=== PATIENT | male | born 1955 | race Caucasian/White ===

== ENCOUNTER 2016-07-13 06:48 | Day surgery (SDC) | payer BC ==
[2016-07-12 17:11] LABS: HEMOGLOBIN 16.5 g/dL (13.6-17.8)
--- NOTE | ~2016-07-13 | OP ---
Record Of Operation [facility] [address] [place]. [address] NAME: SHIRA PHAM : 57 STATUS : REG [facility] PAT#: [id number] AGE: 61 ADM/REG DATE : 07/13/16 MR#: [id number] REPORT SERV DATE: 07/13/16 DICTATED BY: ZEV NORMAN III DATE: 07/13/16 REPORT STATUS : Draft TRANSCRIBED BY: MODL DATE: 07/13/16 DATE OF PROCEDURE: 07/13/2016 PREOPERATIVE DIAGNOSES: 1. Torn anterior cruciate ligament, right knee. 2. Torn posterior horn medial meniscus, right knee. POSTOPERATIVE DIAGNOSES: 1. Torn anterior cruciate ligament, right knee. 2. Torn posterior horn medial meniscus, right knee. SURGICAL PROCEDURE PERFORMED: 1. Arthroscopic-assisted anterior cruciate ligament reconstruction of the right knee using tibialis allograft with the EndoButton femoral fixation and Arthrex bioabsorbable tibial fixation. 2. Arthroscopic repair of a horizontal tear, posterior horn medial meniscus with FasT-Fix suture anchor x1. SURGEON: Zev Norman M.D. FIXED INCOME [employer]ADING VICE PRESIDENT: Ivis Crowell. ANESTHESIA: General. ANTIBIOTICS: Ancef 2 g. COMPLICATIONS: None. CRYSTALLOID: 1000 mL. ESTIMATED BLOOD LOSS: 30 mL. TOURNIQUET TIME: 51 minutes. Femoral nerve block for postoperative pain control. PROCEDURE IN DETAIL: The patient was brought to the operating room, placed on the table in supine position, and general anesthesia was induced. Ancef 2 g was administered intravenously in the operating room. A pneumonic tourniquet was applied to right upper thigh along with the arthroscopic leg almaguer. Right lower extremity was prepped and draped in the usual sterile fashion. It was exsanguinated with a 6-inch Esmarch, and the tourniquet was inflated to 350 mmHg. Assuring good anesthesia, a standard anterolateral portal was provided. The arthroscope was inserted. The knee was inflated with sterile normal saline by means of arthroscopic pump. Suprapatellar pouch was first visualized. It was free of any loose bodies. Medial and lateral gutters were normal. The patellofemoral joint had one cartilage defect in the lateral patellar facet that was stable and it was a Record Of Operation [facility] [address] [place]. [address] NAME: SHIRA PHAM : 57 STATUS : REG [facility] [place] PAT#: [id number] AGE: 61 ADM/REG DATE : 07/13/16 MR#: [id number] REPORT SERV DATE: 07/13/16 DICTATED BY: ZEV NORMAN III DATE: 07/13/16 REPORT STATUS : Draft TRANSCRIBED BY: MODL DATE: 07/13/16 longitudinal fissure with no flaps and appeared stable. The intercondylar notch revealed a complete tear of the anterior cruciate ligament of the femoral attachment which was flipped down on itself. Anteromedial portal was created. The torn anterior cruciate ligament was debrided with a 4.5 shaver. Debridement in the infrapatellar fat pad was performed as well for better visualization. Lateral compartment revealed normal lateral meniscus, lateral femoral condyle, and lateral tibial plateau. The medial compartment had a linear horizontal tear of the posterior horn of medial meniscus, which was through and through. The undersurface could be pulled into the joint. The superior surface was complete but barely complete on the superior portion of the meniscus. Arthroscopic pictures were obtained. The medial femoral condyle had grade 2 changes. At this point, a curved FasT-Fix was used to place a suture in the meniscus, tightened it up, and a nice secure repair arthroscopic pictures were obtained. At this point, the electrocautery was used to cauterize the inner wall of the lateral femoral condyle. A high-speed bur was used to perform a minimal notchplasty. An Acufex guide was set on 50 degrees and a K-wire was placed up into the intercondylar notch to an anteromedial incision. This was over-reamed with a 10 mm [place] reamer. A bone debris was removed. The arthroscope was then switched to the anteromedial portal, and an external aiming guide was placed to the anterior lateral portal. A lateral femoral incision was made on the lateral side of the distal femur to correspond with the guide. The iliotibial band was incised. A 10 mm flip cutter was drilled down into the joint, deployed, and a retrograde tunnel was created approximately 25 mm in length. The flip cutter was removed. A passing suture was placed down the tunnel and out the anteromedial tunnel. A tibialis allograft was previously prepared in the beginning of the case with an EndoButton femoral fixation device. The graft was marked in 30 mm increments and measured 10 mm in diameter. The leading sutures were pulled up through the tunnels. This allowed the graft to be pulled up into the tunnels, first the tibial side, and then the femoral side. The EndoButton was deployed on the lateral side of the femur and confirmed with the mini C-arm image. The knee was cycled approximately 20 times. It appeared isometric with no shortening in flexion or extension. At this point, the tibial side was anchored down with a 28 mm x 11 mm Arthrex bioabsorbable interference screw. Excess graft was removed. Again, the graft was inspected arthroscopically, noted to be in good position with no notch impingement. Instrumentation was removed. Tourniquet was released after 51 minute. The incisions were closed with 0 Vicryl, 2-0 Vicryl, and running 4-0 Monocryl. Benzoin and Steri-Strips were applied. 30 mL of 0.5% Marcaine solution was injected into the knee for postoperative pain control. Sterile dressings were applied, followed by a DonJoy hinged knee brace 0-90 degrees. The patient tolerated the procedure well, brought to recovery in satisfactory condition. There were no intraoperative, postoperative, or anesthetic complications. All instrument, needle, sponge, and lap counts were correct. TB/FERNANDO Zev Norman III, M.D. / [id number] Record Of Operation [address] [address] NAME: SHIRA PHAM : 57 STATUS : REG [facility] PAT#: [id number] AGE: 61 ADM/REG DATE : 07/13/16 MR#: [id number] REPORT SERV DATE: 07/13/16 DICTATED BY: ZEV NORMAN III DATE: 07/13/16 REPORT STATUS : Draft TRANSCRIBED BY: FERNANDO DATE: 07/13/16 CC: Rachelle Witt III, M.D.
== END 2016-07-13 23:59 | disposition home or self-care (01) ==
LOC: MSC 06:48
PROVIDERS: Orthopaedic Surgery
PROC: 0SQC4ZZ Repair Right Knee Joint, Percutaneous Endoscopic Approach (ICD-10-PCS; 2016-07-13)
PROC: 3E0T3BZ Introduction of Anesthetic Agent into Peripheral Nerves and Plexi, Percutaneous Approach (ICD-10-PCS; 2016-07-13)
PROC: 0MUN47Z Supplement Right Knee Bursa and Ligament with Autologous Tissue Substitute, Percutaneous Endoscopic Approach (ICD-10-PCS; principal; 2016-07-13 09:00)
DX: S83.511A Sprain of anterior cruciate ligament of right knee, initial encounter (principal); S83.241A Other tear of medial meniscus, current injury, right knee, initial encounter; X58.XXXA Exposure to other specified factors, initial encounter; Y93.9 Activity, unspecified; N40.0 Benign prostatic hyperplasia without lower urinary tract symptoms; K21.9 Gastro-esophageal reflux disease without esophagitis
CPT/HCPCS: 85014; 85018; 93005; A9270-GY; C1713; C1762; J0690; J0735; J2250; J2405; J2795; J3010